=== PATIENT | female | born 1950 | race Caucasian/White ===

== ENCOUNTER 2019-04-18 00:56 | Day surgery (SDC) | payer MEDICARE, SELFPAY ==
[2019-04-15 11:04] VITALS: BMI 41.1
--- NOTE | ~2019-04-18 | XR_ITS ---
EXAMINATION: XR chest port-a-cath/central EXAM DATE: 04/18/2019 13:15 INDICATION: Owen catheter insertion. TECHNIQUE: Portable AP frontal chest x-ray was obtained. There is no prior study for comparison. FINDINGS: There is patchy left perihilar atelectasis or pneumonia. There is a right-sided portacathet er in position. No postprocedural pneumothorax. Cardiomegaly and pulmonary vascular congestion. There are mild bony degenerative changes. IMPRESSION: 1. No postprocedure pneumothorax. 2. Patchy left perihilar atelectasis and/or pneumonia. Clinical correlation. Reviewed, dictated and finalized at location B. ISTICS MANAGER
--- NOTE | ~2019-04-18 | XR_ITS ---
EXAMINATION: XR fl guide central line place DATE: 04/18/2019 12:52 INDICATION: Port placement. TECHNIQUE: A single intraoperative fluoroscopic view of the chest was obtained. I was not present. Fl uoroscopy time was 18 seconds. COMPARISON: None. FINDINGS: There is a right internal jugular central venous catheter with tip not included. No visible pneumothorax. IMPRESSION: 1. Catheter placement. Reviewed, dictated and finalized at location A. TENANCE WORKER SWIMMING POOL IMPRESSION: 1. Catheter placement.
[2019-04-18 09:52] VITALS: BP 182/61; PULSE 68; RESP 20; TEMP 36.7; O2SAT 100
[2019-04-18] MEDS: LACTATED RINGERS 1,000 ML 30 ML IV CONT (10:15)
[2019-04-18] MEDS: IBUPROFEN IV 800 MG/200 ML 800 MG/200 ML BAG 400 MG IVPB (10:20)
[2019-04-18 10:34] LABS: Glucose Point of Care 189 (65-105)
[2019-04-18 10:36] LABS: INR 1.1; Prothrombin Time 13.7 Seconds (11.1-14.7)
[2019-04-18 10:37] LABS: Partial Thromboplastin Time 32.8 SECONDS (22.3-36.8)
--- NOTE | 2019-04-18 10:42 | SUR.PREOP ---
1005-STATES NO CHANGE SINCE INTERVIEW.
--- NOTE | 2019-04-18 11:33 | WPDANESEPPF ---
Anes - Initial Pre Proc Eval Procedure: Operation Date: 04/18/19 12:00 Proposed Procedures p Insertion Owen Cath - Bhavik Maria DO Date/Time: 04/18/19 11:33 Surgeon: Bhavik Maria DO Pre Op Diagnosis: Rectal Cancer Patient Data Age: 68 Gender: F Height: 5 ft Weight: 92.6 kg Last Vital Signs Temp 36.7 C 04/18/19 09:52 Pulse 68 04/18/19 09:52 Resp 20 04/18/19 09:52 BP 182/61 H 04/18/19 09:52 Pulse Ox 100 04/18/19 09:52 Allergies Allergy/AdvReac Type Severity Reaction Status Date / Time hydrochlorothiazide Allergy Intermediate LIP Verified 04/18/19 10:07 SWELLING nickel AdvReac Mild Rash Verified 04/18/19 10:07 Home Medications Medication Instructions Recorded Confirmed Type alendronate 35 mg PO WEEKLY 04/15/19 04/18/19 History allopurinol 200 mg PO DAILY 04/15/19 04/18/19 History alogliptin-metformin 0.5 tablet PO DAILY 04/15/19 04/18/19 History amlodipine 2.5 mg PO HS 04/15/19 04/18/19 History apixaban [Eliquis] 5 mg PO BID 04/15/19 04/15/19 History carvedilol 12.5 mg PO BID 04/15/19 04/18/19 History cholecalciferol (vitamin D3) 1,000 unit PO DAILY 04/15/19 04/18/19 History [Vitamin D3] ramipril 10 mg PO BID 04/15/19 04/18/19 History simvastatin 40 mg PO HS 04/15/19 04/18/19 History vit C-vit I-hgxxls-gdbu-lutein 1 cap PO DAILY 04/15/19 04/18/19 History [PreserVision Lutein] Laboratory Tests 04/18/19 04/18/19 10:06 10:22 PT 13.7 Seconds Seconds (11.1-14.7) INR 1.1 APTT 32.8 SECONDS SECONDS (22.3-36.8) POC Capillary Glucose 189 mg/dl H mg/dl (65-105) Patient hx anesthesia problems: none Family hx anesthesia problems: none PMFSH Past Medical History Medical History (Updated 04/18/19 @ 11:34 by Ivan To MD) Diabetes HTN (hypertension) Hyperlipidemia Morbid obesity Anes - Eval Final PreProcedure Day of Procedure 04/18/19 11:33 Patient weight: obese Heart: regular rate and rhythm Lungs: clear to auscultation Airway: Mallampati scale class II Neurological: alert and oriented Last oral intake: >/= 8 hours ASA classification: III Emergent: no Anesthetic plan: delay Anesthesia type and monitoring: general GIVS and standard monitoring Informed Consent: The patient's anesthetic plan and its attendant risks and benefits were discussed with the patient/family/POA. Questions were solicited and answers provided to the satisfaction of the patient/family/POA.
--- NOTE | 2019-04-18 11:46 | PM.IMHP ---
H&P: HPI History of Present Illness Chief complaint: Rectal Cancer Narrative: Karen Paulino is a 68 year old female with a hx of rectal cancer. She previously underwent low anterior resection, and did not require chemo at that time. 2 years later, she is now showing signs of metastases. She has seen oncology and they are recommending chemo. Review of Systems Review of Systems: All systems reviewed & are unremarkable except as noted in HPI and below Eyes: Eyes: Denies change in vision ENT: Denies hearing loss, Denies neck pain and Denies sore throat Cardiovascular: Cardiovascular: Denies chest pain and Denies dyspnea Respiratory: Respiratory: Denies cough, Denies dyspnea and Denies wheezing Genitourinary: Genitourinary: Denies hematuria and Denies dysuria Musculoskeletal: Musculoskeletal: Denies arthralgias, Denies joint swelling and Denies neck pain Allergic/Immunologic: Allergic/Immunologic: Denies wheezing PMFSH Past Medical History Medical History Diabetes HTN (hypertension) Hyperlipidemia Morbid obesity Meds Home Medications and Allergies Home Medications Medication Instructions Recorded Confirmed Type alendronate 35 mg PO WEEKLY 04/15/19 04/18/19 History allopurinol 200 mg PO DAILY 04/15/19 04/18/19 History alogliptin-metformin 0.5 tablet PO DAILY 04/15/19 04/18/19 History amlodipine 2.5 mg PO HS 04/15/19 04/18/19 History apixaban [Eliquis] 5 mg PO BID 04/15/19 04/15/19 History carvedilol 12.5 mg PO BID 04/15/19 04/18/19 History cholecalciferol (vitamin D3) 1,000 unit PO DAILY 04/15/19 04/18/19 History [Vitamin D3] ramipril 10 mg PO BID 04/15/19 04/18/19 History simvastatin 40 mg PO HS 04/15/19 04/18/19 History vit C-vit B-wlcydv-kepv-lutein 1 cap PO DAILY 04/15/19 04/18/19 History [PreserVision Lutein] Allergies Allergy/AdvReac Type Severity Reaction Status Date / Time hydrochlorothiazide Allergy Intermediate LIP Verified 04/18/19 10:07 SWELLING nickel AdvReac Mild Rash Verified 02/10/20 10:07 Vital Signs Vital Signs - 24 hr 04/18/19 09:52 Temperature 36.7 C Pulse Rate 68 Respiratory Rate 20 Blood Pressure 182/61 H Pulse Oximetry 100 Exam Const: General: alert; No acute distress Orientation/consciousness: patient oriented x3 Limitations: no limitations HENMT: Head: normocephalic and atraumatic Ears: hearing grossly normal bilaterally General nose exam: Normal external nose present and Normal nares present Mouth: Yes Normal oral and palatal mucosa present and Yes moist mucous membranes Eyes: General: appearance normal, both eyes and all related structures Conjunctivae: conjunctivae normal Sclera: sclerae normal Pupils: Equal, round and reactive pupils present EOM: EOMs intact bilaterally Neck: Neck: normal visual inspection, full ROM, no lymphadenopathy, supple and no JVD Lymphatic: no lymphadenopathy noted Chest: Chest palpation & inspection: normal inspection of the chest Resp: Effort & Inspection: normal respiratory effort and able to speak in complete sentences Auscultation: clear to auscultation bilaterally Percussion: percussion normal Cardio: Jugular venous distension: no JVD Rate: regular rate Rhythm: regular rhythm Heart sounds: S1 normal heart sound present and S2 normal heart sound present Peripheral pulses: Peripheral pulses 2+ throughout GI: Inspection: normal to inspection GI Palp: No abdominal tenderness, Yes Soft to palpation, No Guarding due to palpation present (GI), No Hernia present and No Rebound tenderness present Percussion: Yes normal to percussion Auscultation: normal bowel sounds : General: Yes no CVA tenderness Back/Spine/Pelvis: Back: no CVA tenderness Skin: General skin exam: normal color and dry skin Neuro: General: patient oriented x3, gait normal, moves all extremities, no focal motor deficits and CN's II-XI intact bilaterally Cranial nerves: Yes Equal, r
[2019-04-18] MEDS: ceFAZolin 2 GM/D5W 50 ML 2 GM/50 ML BAG IVPB (11:56)
[2019-04-18] MEDS: LIDO 1%/EPINEPHRINE 1:100,000 20 ML VIAL INFILTRATE (12:24)
[2019-04-18] MEDS: HEPARIN SODIUM, PORCINE 10,000 UNITS/10 ML VIAL 2000 UNITS IV PUSH (12:25)
[2019-04-18] MEDS: HEPARIN SODIUM 5,000 UNITS/ML VIAL 5000 UNITS IRRIGATION (12:27)
--- NOTE | 2019-04-18 12:52 | PM.PROC ---
Procedure Note - Detailed Date of procedure: 04/18/19 Pre-op diagnosis: Rectal Cancer Post-op diagnosis: same Procedure performed: Right internal jugular Port-A-Cath placement using ultrasound and fluoroscopic guidance Description of procedure: Procedure as well as risks, benefits, and alternatives were discussed with patient. Written consent was obtained and placed in chart prior to procedure. Patient was brought back to surgical suite. Was placed supine on operating table. Time-out was done confirm patient procedure. IV sedation was then administered by the Anesthesia Department. The chest and neck area was prepped and draped in sterile fashion using chlorhexidine prep. Patient was placed in Trendelenburg position. SonoSite ultrasound was used to identify the right internal jugular vein. It was visualized as a compressible vessel just lateral to the carotid artery. 1% lidocaine with epinephrine was infiltrated directly over the vessel under ultrasound guidance. An 18 gauge introducer needle was then advanced under ultrasound guidance directly into the right internal jugular vein. Dark nonpulsatile blood was aspirated. A 0.035 in guidewire was then advanced through the needle under fluoroscopic guidance. The guidewire was visualized advancing all the way down into the superior vena cava. 1% lidocaine with epinephrine was then infiltrated on the right anterior chest and along the tract up to the guidewire insertion site. A 3 cm incision was made with a 15 blade scalpel, and electrocautery was then used for dissection down through the subcutaneous tissue to the pectoral fascia. A pocket was created just inferior to the incision using blunt dissection. A small quynh incision was then also made at the insertion site at the neck. The tunneler was then advanced from the chest incision up to the neck incision and the catheter tubing was brought up through this tract. The dilator and sheath were then advanced over the guidewire under fluoroscopic visualization. The dilator and guidewire were then removed leaving the sheath in place. The catheter tubing was then advanced through the sheath under fluoroscopic guidance. The sheath was unsnapped and carefully peeled away. The catheter tubing was released underneath the neck incision. Fluoroscopy was used to confirm proper placement of the catheter tubing and no kinks along its path. The catheter was then cut to proper length and secured to the port. The port was then accessed with a Fernandez needle and aspirated and flushed with heparinized saline. The port function with ease. The port was then hep-locked with Hep-Lock solution. The port was then placed within the pocket that was created, and was secured to the fascia using 3 0 Prolene simple interrupted sutures. The patient was flattened out in bed. Ck's fascia was reapproximated using 3 0 Vicryl simple interrupted sutures. The skin of the incisions was then approximated using 4-0 Monocryl subcuticular suture. Exofin glue was then applied on top. The patient was then awakened from anesthesia and transferred to recovery. Implants: Smart Port CT port Anesthesia: MAC and local (1% lidocaine with epinephrine) Surgeon: Bhavik Maria DO Estimated blood loss (mL): 20 Complications: No immediate complications Condition: stable Disposition: same day Findings: This is a 68-year-old woman who presented with a prior history of rectal cancer and underwent surgical resection 2 years ago. She did not require chemotherapy or radiation at that time, but now has evidence of metastases. She has seen Oncology and now chemotherapy is recommended. She is in need of port placement to initiate chemo. Smart Port CT Port-A-Cath was placed using ultrasound and fluoroscopic guidance. The right internal jugular vein was accessed using [email or web address] ultrasound guidance. An 18 gauge introducer needle was advanced under ultrasound and dark nonpulsatile blood was aspirated. Fluo
[2019-04-18 13:03] VITALS: BP 121/55; PULSE 81; RESP 14; O2SAT 95
--- NOTE | 2019-04-18 13:11 | SUR.PHASEII ---
1310; PORTABLE CXR DONE AT BEDSIDE.
[2019-04-18 13:30] VITALS: BP 135/58; PULSE 69; RESP 16
[2019-04-18 14:03] VITALS: BP 139/55; PULSE 80; RESP 16
--- NOTE | 2019-04-18 14:14 | SUR.PHASEII ---
1350; PT TAKEN TO BATHROOM PER W/C. GAIT SOMEWHAT UNSTEADY. PT STATES SHE USES A CANE AND SOMETIMES A WALKER AT HOME. VOIDED.
== END 2019-04-18 14:15 | disposition home or self-care (01) ==
PROVIDERS: PCP Internal Medicine; Visit Provider Surgery
PROC: (CPT 36561; principal; 2019-04-18 12:00)
DX: C20 Malignant neoplasm of rectum (principal); I10 Essential (primary) hypertension; E78.5 Hyperlipidemia, unspecified; E66.01 Morbid (severe) obesity due to excess calories; Z68.39 Body mass index [BMI] 39.0-39.9, adult; Z79.01 Long term (current) use of anticoagulants
CPT/HCPCS: 36561; 36415; 77001; 85610; 85730; C1788; J0690; J1644; J1741; J2704; J3010; J7030; J7120

== ENCOUNTER 2019-05-16 09:38 | Outpatient (CLI) | payer MEDICARE, SELFPAY ==
[2019-05-16 12:18] LABS: Cholesterol 129 mg/dL (0-200); HDL Direct 53 mg/dL; Triglycerides 223 mg/dL (<150); Uric Acid 4.9 mg/dL (2.5-7.5)
[2019-05-16 12:29] LABS: LDL Cholesterol Direct 69 mg/dL
[2019-05-16 12:36] LABS: Vitamin D 25 Hydroxy 24.3 ng/mL
[2019-05-16 13:18] LABS: Hemoglobin A1C 7.3 % (<5.7)
== END 2019-05-16 09:39 | disposition home or self-care (01) ==
LOC: ANHLAB 09:41
PROVIDERS: PCP Internal Medicine; Visit Provider Internal Medicine
DX: E78.49 Other hyperlipidemia (principal); E11.42 Type 2 diabetes mellitus with diabetic polyneuropathy; I10 Essential (primary) hypertension; E55.9 Vitamin D deficiency, unspecified; E79.0 Hyperuricemia without signs of inflammatory arthritis and tophaceous disease
CPT/HCPCS: 36415; 80061; 82306; 83036; 84443; 84550

== ENCOUNTER 2019-07-27 07:08 | Outpatient (CLI) | payer MEDICARE, SELFPAY ==
--- NOTE | ~2019-07-27 | CT_ITS ---
EXAMINATION: CT abdomen pelvis w con DATE: 07/27/2019 07:38 INDICATION: Rectal adenocarcinoma. TECHNIQUE: Computed tomography (CT) of the abdomen and pelvis was performed with 100 mL Omnipaque 350 intravenous contrast. Automated exposure control and iterative reconstruction technique were employe d. The dose-length product was 1243.45 mGy-cm. COMPARISON: None. FINDINGS: The visualized portions of the lung bases demonstrate mild atelectasis. No pleural effusion . Cardiomegaly is noted. There are coronary artery calcifications. No pericardial effusion. There is a catheter tip in right atrium. 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 The liver pare nchyma, spleen, pancreas, and adrenal glands are normal. There is cortical thinning of the kidneys. T here are cysts in the kidneys measuring up to 2.9 cm on the right. There is a calcification in the ut erus, consistent with a fibroid. There is diverticulosis of the colon without evidence of diverticuli tis. There are no dilated loops of bowel. There are no pathologically enlarged lymph nodes. There is no free intraperitoneal fluid. There is a left hip arthroplasty. There is a chronic left L5 pars defe ct. There is 9 mm anterolisthesis of L5 on S1. There is lumbar dextroscoliosis. There is severe thora cic and lumbar spondylosis. IMPRESSION: 1. No evidence of metastatic disease. Reviewed, dictated and finalized at location E.
== END 2019-07-27 07:09 | disposition home or self-care (01) ==
PROVIDERS: PCP Internal Medicine; Visit Provider Internal Medicine Hematology & Oncology
DX: C20 Malignant neoplasm of rectum (principal)
CPT/HCPCS: 36415; 74177; 80048; 80053; 81002; 85025; 96367; 96368; 96375; 96411; 96413; 96415; 96416; 96417; J0640; J1100; J1200; J2469; J7050; J7060; J9035; J9190; J9263; Q9967

== ENCOUNTER 2019-09-19 10:08 | Outpatient (CLI) | payer MEDICARE, SELFPAY ==
[2019-09-19 12:25] LABS: Cholesterol 141 mg/dL (0-200); HDL Direct 59 mg/dL; Triglycerides 202 mg/dL (<150)
[2019-09-19 12:29] LABS: Hemoglobin A1C 8.1 % (<5.7)
[2019-09-19 12:36] LABS: LDL Cholesterol Direct 60 mg/dL
[2019-09-19 12:38] LABS: Vitamin D 25 Hydroxy 14.9 ng/mL
== END 2019-09-19 10:09 | disposition home or self-care (01) ==
PROVIDERS: PCP Internal Medicine; Visit Provider Internal Medicine Hematology & Oncology
DX: E66.01 Morbid (severe) obesity due to excess calories (principal); E11.42 Type 2 diabetes mellitus with diabetic polyneuropathy; Z79.4 Long term (current) use of insulin; E78.49 Other hyperlipidemia; G62.89 Other specified polyneuropathies
CPT/HCPCS: 36415; 80061; 82306; 82607; 83036; 84443

== ENCOUNTER 2019-11-07 08:21 | Outpatient (CLI) | payer MEDICARE, SELFPAY ==
--- NOTE | ~2019-11-07 | CT_ITS ---
EXAMINATION: CT abdomen pelvis w con INDICATION: Rectal adenocarcinoma TECHNIQUE: Computed tomographic images of the abdomen and pelvis were obtained after the administrati on of 100 cc of Omnipaque 350 intravenous contrast. The dose-length product (DLP) was 1245.70 mGy-cm. Automated exposure control and iterative reconstruction technique were employed. COMPARISON: 07/27/2019 FINDINGS: Minimal dependent atelectasis is present in the lung bases. The heart size is mildly enlarg ed. The liver, spleen, pancreas, gallbladder, and adrenal glands are normal. Cysts of the kidneys kyle sure up to 3.4 cm on the right. 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 Ther e is calcified atherosclerosis of the aorta and many of the other arteries. No pathologically enlarge d abdominal or pelvic lymph nodes are identified. There is no free intraperitoneal gas or evidence of bowel obstruction. A calcified uterine fibroid is noted. There are changes of left hip arthroplasty. A healed fracture of the left inferior pubic ramus is noted. There are bilateral L5 pars defects wit h grade 1 anterolisthesis of L5 on S1. Severe lumbar spondylosis is noted. IMPRESSION: 1. No evidence of metastatic disease. Reviewed, dictated and finalized at location A.
[2019-11-07 08:51] LABS: Basophils Percent Auto 0.5 % (0.2-1.2); Eosinophils Absolute Auto 0.2 K/mm3 (0-0.3); Eosinophils Percent Auto 2.7 % (0-4.4); Hematocrit 36.5 % (37.0-47.0); Immature Granulocyte Absolute 0.02 K/mm3 (0.00-0.031); Immature Granulocyte Percent A 0.3 % (0-0.5); Lymphocytes Absolute Auto 1.22 K/mm3 (0.9-3.2); Lymphocytes Percent Auto 20.3 % (18.3-44.2); Mean Corpuscular HGB Conc 32.9 g/dl (32-36); Mean Corpuscular Hemoglobin 32.5 pg (26-34); Mean Corpuscular Volume 98.9 fl (80-100); Mean Platelet Volume 8.9 fl (7.4-10.4); Monocytes Absolute Auto 0.4 K/mm3 (0.1-0.6); Monocytes Percent Auto 6.7 % (2.6-8.5); Neutrophils Absolute Auto 4.2 K/mm3 (1.3-6.7); Neutrophils Percent Auto 69.5 % (45.5-73.1); Platelet Count Result 119 k/mm3 (150-375); Red Blood Count 3.69 M/mm3 (4.2-5.4); Red Cell Distribution Width 16.1 % (11.5-14.5)
[2019-11-07 09:03] LABS: Alanine Aminotransferase 19 U/L (4-35); Albumin Level 3.7 g/dL (3.5-5.1); Alkaline Phosphatase 90 U/L (38-126); Anion Gap 7 mmol/L (8-16); Aspartate Amino Transferase 24 U/L (14-36); Bilirubin,Total 0.7 mg/dL (0.2-1.3); Blood Urea Nitrogen 14 mg/dL (7-17); Calcium 9.4 mg/dL (8.4-10.2); Carbon Dioxide 25 mmol/L (22-30); Chloride 107 mmol/L (98-107); Estimated Glomerular Filt Rate > 60; Glucose 171 mg/dL (65-105); Potassium 3.7 mmol/L (3.4-5.0); Sodium 139 mmol/L (137-145)
[2019-11-07 09:34] LABS: Carcinoembryonic Antigen 8.1 ng/mL (0.0-3.0)
== END 2019-11-07 08:22 | disposition home or self-care (01) ==
PROVIDERS: PCP Internal Medicine; Visit Provider Internal Medicine Hematology & Oncology
DX: C20 Malignant neoplasm of rectum (principal)
CPT/HCPCS: 36415; 74177; 80053; 82378; 85025; Q9967

== ENCOUNTER 2019-11-18 13:58 | Outpatient (CLI) | payer MEDICARE, SELFPAY ==
--- NOTE | ~2019-11-18 | XR_ITS ---
XR wrist RT min 3V DATE: 11/18/2019 14:27 INDICATION: Pain, swelling, erythema of right wrist TECHNIQUE: 4 views COMPARISON: None FINDINGS: Diffuse osteopenia. There is chondrocalcinosis of the triangular cartilage and wrist joint. There is severe osteoarthritic change at the triscaphe joint, joint space narrowing and prominent hyp ertrophic spurring. No fracture, dislocation, periosteal reaction or bone destruction is detected. 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
== END 2019-11-18 13:59 | disposition home or self-care (01) ==
PROVIDERS: PCP Internal Medicine
DX: M85.831 Other specified disorders of bone density and structure, right forearm (principal); M19.031 Primary osteoarthritis, right wrist
CPT/HCPCS: 73110

== ENCOUNTER 2020-01-17 14:22 | Outpatient (CLI) | payer MEDICARE, SELFPAY ==
--- NOTE | ~2020-01-17 | CT_ITS ---
EXAMINATION: CT chest abdomen pelvis w con DATE: 01/17/2020 15:16 INDICATION: Rectal adenocarcinoma restaging TECHNIQUE: Computed tomography (CT) of the chest, abdomen, and pelvis was performed with 100 cc Omnip aque 350 intravenous contrast. Automated exposure control and iterative reconstruction technique were employed. Exam dose: 1193.27 mGy-cm total exam DLP. COMPARISON: 11/07/2019 CT abdomen pelvis FINDINGS: CHEST CT: There is mild dependent atelectasis and/or scarring in the right and to a lesser extent left lower an d bilateral upper lobes. No pulmonary mass lesion is evident. Cardiomegaly. No pericardial effusion. There is coronary artery atherosclerotic calcification. No tho racic aortic dissection. The ascending aorta measures up to 4 cm diameter. No hilar or mediastinal mass lesion or lymphadenopathy. ABDOMEN/PELVIS CT: Diffuse hepatic steatosis. No hepatic, splenic, pancreatic, adrenal space-occupying mass lesion. 3 cm lower pole right renal cyst. Approximately 9.8 mm upper pole left renal cyst. Approximately 4.5 mm benign-appearing fatty lesion of the anterior aspect of the lower pole of the left kidney. There i s bilateral renal scarring. Nonobstructing 2 small lower pole right renal calculi are suggested; this would be more definitively determined by a noncontrast examination. No ureteral calculus or hydroureteronephrosis is evident. There is extensive streak artifact and a le ft hip joint prosthesis, which somewhat limits evaluation of the pelvic area. There is atherosclerotic calcification but normal caliber of the abdominal aorta. No intraperitoneal or retroperitoneal or pelvic mass lesion or adenopathy or ascites is detected. Retroverted uterus with some fibroid calcification. The urinary bladder is unremarkable. There is mild colonic diverticulosis; no CT evidence of diverticulitis. No bowel obstruction, bowel w all thickening, pneumatosis or intraperitoneal free air. There is a small amount of free fluid in the cul-de-sac. Very small fat-containing umbilical hernia. Prominent degenerative changes of the lower cervical spine. Degenerative change of the thoracic spine . Bilateral L5 pars interarticularis defects with grade 2 anterolisthesis at L5-S1. There is prominent degenerative disc disease throughout the lumbar and lumbosacral spine, with associ ated mild retrolisthesis at L1-2, L2-3 and L3-4. No suspicious osteolytic or osteoblastic lesions are noted. IMPRESSION: No evidence of recurrent rectal adenocarcinoma or metastatic disease Reviewed, dictated and finalized at Location A. Reviewed, dictated and finalized at location A. GAUGER IMPRESSION: No evidence of recurrent rectal adenocarcinoma or metastatic disea se
== END 2020-01-17 14:23 | disposition home or self-care (01) ==
PROVIDERS: PCP Internal Medicine; Visit Provider Internal Medicine Hematology & Oncology
DX: C20 Malignant neoplasm of rectum (principal)
CPT/HCPCS: 71260; 74177; Q9967

== ENCOUNTER 2020-04-27 10:35 | Outpatient (CLI) | payer MEDICARE, SELFPAY ==
[2020-04-27 10:54] LABS: Basophils Percent Auto 0.3 % (0.2-1.2); Eosinophils Absolute Auto 0.2 K/mm3 (0-0.3); Eosinophils Percent Auto 2.3 % (0-4.4); Hematocrit 39.3 % (37.0-47.0); Hemoglobin 12.2 g/dL (12.0-15.0); Immature Granulocyte Absolute 0.02 K/mm3 (0.00-0.031); Immature Granulocyte Percent A 0.3 % (0-0.5); Lymphocytes Percent Auto 12.4 % (18.3-44.2); Mean Corpuscular Volume 93.6 fl (80-100); Mean Platelet Volume 9.3 fl (7.4-10.4); Monocytes Absolute Auto 0.3 K/mm3 (0.1-0.6); Monocytes Percent Auto 4.1 % (2.6-8.5); Neutrophils Absolute Auto 5.9 K/mm3 (1.3-6.7); Neutrophils Percent Auto 80.6 % (45.5-73.1); Platelet Count Result 171 k/mm3 (150-375); Red Cell Distribution Width 15.6 % (11.5-14.5); White Blood Count 7.3 K/mm3 (4.5-10.0)
[2020-04-27 13:37] LABS: Alanine Aminotransferase 17 U/L (4-35); Alkaline Phosphatase 80 U/L (38-126); Anion Gap 9 mmol/L (8-16); Aspartate Amino Transferase 24 U/L (14-36); Bilirubin,Total 0.8 mg/dL (0.2-1.3); Blood Urea Nitrogen 15 mg/dL (7-17); Calcium 9.7 mg/dL (8.4-10.2); Carbon Dioxide 28 mmol/L (22-30); Chloride 105 mmol/L (98-107); Estimated Glomerular Filt Rate > 60; Glucose 153 mg/dL (65-105); Potassium 3.8 mmol/L (3.4-5.0); Sodium 142 mmol/L (137-145)
[2020-04-27 14:07] LABS: Carcinoembryonic Antigen 82.6 ng/mL (0.0-3.0)
== END 2020-04-27 10:36 | disposition home or self-care (01) ==
LOC: ANHLAB 10:37
PROVIDERS: PCP Internal Medicine; Visit Provider Internal Medicine Hematology & Oncology
DX: C20 Malignant neoplasm of rectum (principal)
CPT/HCPCS: 36415; 80053; 82378; 85025

== ENCOUNTER 2020-05-08 11:41 | Outpatient (CLI) | payer MEDICARE, SELFPAY ==
--- NOTE | ~2020-05-08 | PE_ITS ---
EXAMINATION: PET skull to mid thigh DATE: 05/08/2020 14:05 INDICATION: Rectal adenocarcinoma TECHNIQUE: Blood glucose level was 122 mg/dL. 11.719 mCi of 18-fluorodeoxyglucose (18-FDG) was admini stered i.v. Low dose computed tomography (CT) images were acquired from the base of the brain to the proximal thighs for attenuation correction and anatomic localization. Positron emission tomography (P ET) images were acquired in the same distribution beginning 60 minutes after injection. Images includ ing fused PET/CT images were reconstructed in axial, coronal, and sagittal planes. Automated exposure control technique was employed. The dose-length product was 722.81mGy-cm. COMPARISON: CT chest, abdomen and pelvis dated 01/17/2020 FINDINGS: Head/neck: There is symmetric increased activity in the oral cavity, palatine tonsils, laryngeal muscles and ocu lar muscles without CT correlate, likely physiologic. Postoperative change of prior right thyroidecto my. There is mild increased FDG uptake is fissure with small nodular soft tissue density with maximal SUV of 3.4 and measuring up to 8 mm in diameter, possibly a lymph node, in the region of the deep le ft thyroid fossa. 1.3 cm peripherally calcified nodule in the deep right thyroid. No pathologically e nlarged cervical lymphadenopathy. Chest: Right internal jugular central venous port catheter with distal tip at the high right atrium. Mild at electasis at the posterior sulcus of the right lower lobe without increased FDG uptake. There is scat tered mosaic attenuation with chronic subsegmental region of increased lucency in the anteromedial ri ght middle lobe likely related to air trapping as sequela small airway disease. No pneumonia or other suspicious pulmonary nodules, pulmonary edema or pleural effusion. Cardiomegaly. Atherosclerotic cor onary artery calcifications. Aortic valve and mitral annular calcification. No pericardial effusion. Fusiform ascending thoracic aortic aneurysm measuring up to 4.0 cm. There is enlargement of the centr al pulmonary arteries consistent with pulmonary arterial hypertension. No pathologically enlarged tho racic lymphadenopathy. Asymmetric densities in surrounding stranding in the left breast which is new since the prior CT. There is also asymmetric minimal diffuse increased FDG activity throughout the le ft breast and along the skin surface. These findings are likely related to reported recent left breas t biopsy. No other abnormal FDG avid lesions in the thorax. Abdomen/pelvis/proximal thighs: Physiologic renal accumulation and excretion of FDG activity in the kidneys, bladder and along portio ns of ureters. 3 cm low-density cyst at the lower pole of the left kidney. Normal degree and heteroge nous pattern of increased uptake throughout the liver without radiologic correlate or dominant FDG av id lesion. The gallbladder, pancreas, spleen and bilateral adrenal glands are normal. Mild to moderat e uptake scattered throughout the bowels without radiologic correlate, also likely physiologic. Calci fication at the lower uterine segment likely related to a degenerated uterine fibroid. There is mild increased FDG uptake within a left para-aortic lymph node with maximum SUV of 3.8. The lymph node kyle sures approximately 4-5 mm maximal short axis diameter on the prior study now approximately 7 mm alth ough accuracy of measurement on the current study is more limited due to the poorly defined margins o f the lymph node resulting from quantum mottle. There is a couple additional mildly FDG avid retroper itoneal lymph nodes including an inferior aortocaval lymph node with maximal SUV of 3.1 and a right c ommon iliac chain lymph node with maximal SUV of 2.9. The dimensions of both lymph nodes are again di fficult to accurately determine on the current study but appear subjectively increased in size since the prior study. No other abnormal foci of increased
[2020-05-08 12:23] LABS: Glucose Point of Care 122 (65-105)
== END 2020-05-08 11:42 | disposition home or self-care (01) ==
LOC: ANHIMG 11:42
PROVIDERS: PCP Internal Medicine; Visit Provider Internal Medicine Hematology & Oncology
DX: C20 Malignant neoplasm of rectum (principal); R59.0 Localized enlarged lymph nodes; E89.0 Postprocedural hypothyroidism; I51.7 Cardiomegaly; I71.2 Thoracic aortic aneurysm, without rupture; E11.9 Type 2 diabetes mellitus without complications
CPT/HCPCS: 78815; 82948; 96523; A9552

== ENCOUNTER 2020-07-16 12:01 | Outpatient (CLI) | payer MEDICARE, SELFPAY ==
[2020-07-16 13:08] LABS: Uric Acid 5.3 mg/dL (2.5-7.5)
[2020-07-16 13:12] LABS: Hemoglobin A1C 6.2 % (<5.7)
[2020-07-16 13:43] LABS: Parathyroid Intact 208.4 pg/mL (7.5-53.5)
[2020-07-16 14:14] LABS: Vitamin D 25 Hydroxy 24.7 ng/mL
[2020-07-16 14:40] LABS: Creatinine Urine 93.5 mg/dL
[2020-07-16 14:44] LABS: MALB Creatinine Ratio 62.1 mg/g (0-30); Microalbumin Urine Random 58.1 mg/L (0-16.7)
== END 2020-07-16 12:02 | disposition home or self-care (01) ==
LOC: ANHLAB 12:03
PROVIDERS: PCP Internal Medicine; Visit Provider Internal Medicine
DX: C20 Malignant neoplasm of rectum (principal); E55.9 Vitamin D deficiency, unspecified; M10.00 Idiopathic gout, unspecified site; E78.49 Other hyperlipidemia; E11.42 Type 2 diabetes mellitus with diabetic polyneuropathy; Z79.4 Long term (current) use of insulin; I10 Essential (primary) hypertension
CPT/HCPCS: 36415; 82043; 82306; 82607; 83036; 83970; 84443; 84550

== ENCOUNTER 2020-08-28 09:14 | Outpatient (CLI) | payer MEDICARE, SELFPAY ==
--- NOTE | ~2020-08-28 | CT_ITS ---
EXAMINATION: CT chest abdomen pelvis w con DATE: 08/28/2020 10:07 INDICATION: Metastatic rectal cancer TECHNIQUE: Transaxial computed tomographic images of the chest, abdomen, and pelvis were obtained aft er the administration of 100 cc of Omnipaque 350 intravenous contrast. The dose-length product (DLP) was 864.06 mGy-cm. Automated exposure control and iterative reconstruction technique were employed. COMPARISON: 05/08/2020, 01/17/2020 FINDINGS: CHEST CT: No abnormal FDG uptake is identified. There is mild dependent atelectasis. No focal airspace opacitie s are identified. A 10 mm nodular opacity of the right posterior costophrenic angle likely represents resolving atelectasis given the appearance on the recent comparison PET/CT and the absence of FDG up take in this region. Cardiomegaly is noted. There are no pathologically enlarged thoracic lymph nodes . There is an unchanged 10 mm calcified nodule of the right thyroid lobe. Changes of left thyroidecto my are noted. A right internal jugular Port-A-Cath ends with its tip in the distal superior vena cava . Calcified coronary artery atherosclerosis is noted. ABDOMEN/PELVIS CT: Physiologic FDG activity is present in the bowel and urinary tract. No abnormal FDG uptake is identif ied. The liver, spleen, pancreas, gallbladder, and adrenal glands are normal. Cysts of the kidneys measure up to 3.4 cm on the right. Nonobstructing stones in the right kidney lower pole measure up to 3 mm. No pathologically enlarged abdominal or pelvic lymph nodes are identified. There is calcified atherosclerosis of the aorta and many of the other arteries. There is no free intraperitoneal gas or evidence of bowel obstruction. Changes of left hip arthroplasty are noted and cause streak artifact i n the pelvis. Calcifications in the uterus likely reflect calcified fibroids. There is severe lumbar spondylosis. IMPRESSION: 1. No evidence of metastatic disease. Reviewed, dictated and finalized at location A.
[2020-08-28 09:55] LABS: Estimated Glomerular Filt Rate > 60
== END 2020-08-28 09:15 | disposition home or self-care (01) ==
PROVIDERS: PCP Internal Medicine; Visit Provider Internal Medicine Hematology & Oncology
DX: C77.8 Secondary and unspecified malignant neoplasm of lymph nodes of multiple regions (principal)
CPT/HCPCS: 71260; 74177; Q9967

== ENCOUNTER 2020-10-15 08:34 | Outpatient (CLI) | payer MEDICARE, SELFPAY ==
[2020-10-15 08:44] LABS: Basophils Percent Auto 0.3 % (0.2-1.2); Eosinophils Absolute Auto 0.1 K/mm3 (0-0.3); Eosinophils Percent Auto 2.2 % (0-4.4); Hematocrit 31.3 % (37.0-47.0); Hemoglobin 9.9 g/dL (12.0-15.0); Immature Granulocyte Absolute 0.01 K/mm3 (0.00-0.031); Immature Granulocyte Percent A 0.3 % (0-0.5); Lymphocytes Absolute Auto 0.75 K/mm3 (0.9-3.2); Lymphocytes Percent Auto 23.2 % (18.3-44.2); Mean Corpuscular HGB Conc 31.6 g/dl (32-36); Mean Corpuscular Volume 98.1 fl (80-100); Monocytes Absolute Auto 0.2 K/mm3 (0.1-0.6); Monocytes Percent Auto 6.5 % (2.6-8.5); Neutrophils Absolute Auto 2.2 K/mm3 (1.3-6.7); Neutrophils Percent Auto 67.5 % (45.5-73.1); Platelet Count Result 133 k/mm3 (150-375); Red Blood Count 3.19 M/mm3 (4.2-5.4); Red Cell Distribution Width 17.2 % (11.5-14.5); White Blood Count 3.2 K/mm3 (4.5-10.0)
[2020-10-15 08:50] LABS: Blood Urea Nitrogen 14 mg/dL (8-26); Carbon Dioxide 26 mmol/L (22-30); Chloride 105 mmol/L (98-109); Estimated CRCL calculation 51 ml/min; Estimated Glomerular Filt Rate > 60; Glucose 157 mg/dL (70-105); Potassium 3.6 mmol/L (3.5-4.9); Sodium 144 mmol/L (138-146)
[2020-10-15 10:11] LABS: Protein Urine Negative (Negative)
[2020-10-15 13:48] LABS: Hemoglobin A1C 6.1 % (<5.7)
[2020-10-15 13:57] LABS: Alanine Aminotransferase 20 U/L (4-35); Albumin Level 3.4 g/dL (3.5-5.1); Alkaline Phosphatase 70 U/L (38-126); Anion Gap 3 mmol/L (8-16); Aspartate Amino Transferase 24 U/L (14-36); Bilirubin,Total 0.6 mg/dL (0.2-1.3); Blood Urea Nitrogen 15 mg/dL (7-17); Calcium 9.4 mg/dL (8.4-10.2); Carbon Dioxide 27 mmol/L (22-30); Chloride 110 mmol/L (98-107); Cholesterol 121 mg/dL (0-200); Estimated CRCL calculation 57 ml/min; Estimated Glomerular Filt Rate > 60; Glucose 147 mg/dL (65-110); Parathyroid Intact 187.1 pg/mL (7.5-53.5); Potassium 3.8 mmol/L (3.4-5.0); Sodium 140 mmol/L (137-145)
[2020-10-16 11:44] LABS: Vitamin D 25 Hydroxy 32.7 ng/mL
== END 2020-10-15 08:35 | disposition home or self-care (01) ==
LOC: ANHLAB 08:40
PROVIDERS: PCP Internal Medicine; Visit Provider Internal Medicine Hematology & Oncology
DX: E21.3 Hyperparathyroidism, unspecified (principal); E55.9 Vitamin D deficiency, unspecified; E78.49 Other hyperlipidemia; E11.42 Type 2 diabetes mellitus with diabetic polyneuropathy; Z79.4 Long term (current) use of insulin; I10 Essential (primary) hypertension
CPT/HCPCS: 36415; 80048; 80053; 81002; 82306; 82465; 83036; 83970; 84443; 85025

== ENCOUNTER 2020-11-27 09:58 | Outpatient (CLI) | payer MEDICARE, SELFPAY ==
--- NOTE | ~2020-11-27 | CT_ITS ---
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 Metastatic rectal cancer. TECHNIQUE: Spiral CT of the chest, abdomen and pelvis was performed following intravenous injection o f 100 mL Omnipaque 350. Axial, coronal and sagittal images chest, abdomen and pelvis were reviewed. Coronal maximum intensity pixel images of chest reviewed. The dose-length product (DLP) for this ex amination was 961.16 mGy-cm. The exposure was tailored according to patient size (auto mA exposure c ontrol), and iterative reconstruction (ASIR) was used as additional dose reduction technique. Compari son is made to prior examination from 08/28/2020. FINDINGS: CHEST: The lungs are clear. There are no pleural or pericardial effusions. Tracheobronchial tree is patent. There is no mediastinal, hilar or axillary lymphadenopathy. There is no pneumothorax. There is cardiomegaly. There is mild coronary arterial calcification, arterial sclerosis. There i s right-sided portacatheter. The main, central pulmonary arteries are dilated which can indicate elev ated pulmonary arterial pressure, pulmonary arterial hypertension. No filling defects/pulmonary embol i within these. ABDOMEN PELVIS: The liver, spleen, adrenal glands and pancreas are unremarkable. Gallbladder is unre markable. No biliary obstruction. Portal vein is dilated but nonthrombosed, could indicate portal hy pertension. Kidneys enhance symmetrically. There is punctate right nephrolithiasis. Right renal cyst at the lower pole measuring 3.4 cm. There is no hydronephrosis. The uterus is anteverted and morph ologically normal. The bladder is unremarkable. There is no retroperitoneal or pelvic lymphadenopa thy. There is mild scattered arteriosclerotic disease. The appendix is not positively visualized. There is no pericecal inflammatory change to suggest appe ndicitis. The stomach and small bowel are unremarkable. There is expected amount of colonic stool. No free intraperitoneal gas. There are no osteoblastic or osteolytic lesions identified. There i s chronic left L5 spondylolysis with grade 2 anterolisthesis L5 on S1. Advanced disc disease L1-L4 an d L5-S1. There is left hip arthroplasty hardware. IMPRESSION: 1. No evidence metastatic disease. 2. Dilated pulmonary arteries and portal vein. 3. Cardiomegaly. Reviewed, dictated and finalized at [facility].
== END 2020-11-27 09:59 | disposition home or self-care (01) ==
LOC: ANHIMG 10:01
PROVIDERS: PCP Internal Medicine; Visit Provider Internal Medicine Hematology & Oncology
DX: C77.8 Secondary and unspecified malignant neoplasm of lymph nodes of multiple regions (principal); I51.7 Cardiomegaly
CPT/HCPCS: 71260; 74177; Q9967

== ENCOUNTER 2021-04-08 10:49 | Outpatient (CLI) | payer MEDICARE, SELFPAY ==
--- NOTE | ~2021-04-08 | CT_ITS ---
EXAMINATION: CT chest abdomen pelvis w con DATE: 04/08/2021 11:27 INDICATION: History of metastatic colon cancer TECHNIQUE: Transaxial computed tomographic images of the chest, abdomen, and pelvis were obtained aft er the administration of 100 cc of Omnipaque 350 intravenous contrast. The dose-length product (DLP) was 1188.80 mGy-cm. Automated exposure control and iterative reconstruction technique were employed. COMPARISON: 11/27/2020 FINDINGS: CHEST CT: There is mild emphysema. A right internal jugular Port-A-Cath ends with its tip in the proximal right atrium. There is a 4 mm nodule of the right middle lobe on image 63 not definitely identified on the comparison examination. There is a 3 mm nodule of the left lower lobe on image 66 not definitely anton ntified on the prior examination. There is mild dependent atelectasis. Small pleural effusions are pr esent. There is no pneumothorax. Cardiomegaly is noted. No pathologically enlarged thoracic lymph nod es are identified. ABDOMEN/PELVIS CT: The liver, spleen, pancreas, and adrenal glands are normal. There is possible mild wall thickening of the gallbladder. Diffuse anasarca is noted. There are areas of cortical scarring of the kidneys. Cys ts of the kidneys measure up to 3.2 cm on the right. There is a small to moderate volume of ascites. Streak artifact from left hip arthroplasty partially obscures visualization of the pelvis. No patholo gically enlarged abdominal or pelvic lymph nodes are identified. There is no free intraperitoneal gas or evidence of bowel obstruction. There is severe lumbar spondylosis. IMPRESSION: 1. Indeterminate nodules of the right middle lobe and left lower lobe as described above. Attention o n follow-up examination is recommended. 2. Diffuse anasarca and small to moderate volume of ascites. 3. Possible mild wall thickening of the gallbladder which could be related to congestive heart failur e. Recommend correlation for right upper quadrant tenderness. Reviewed, dictated and finalized at location [facility]. [facility] A[facility] IMPRESSION: 1. Indeterminate nodules of the right middle lobe and left lower lobe as descri bed above. Attention on follow-up examination is recommended. 2. Diffuse anasarca and small to moderate volume of ascites. 3. Possible mild wall thickening of the gallbladder which could be related to c ongestive heart failure. Recommend correlation for right upper quadrant tendern ess.
== END 2021-04-08 10:50 | disposition home or self-care (01) ==
LOC: ANHIMG 10:55
PROVIDERS: PCP Internal Medicine; Visit Provider Internal Medicine Hematology & Oncology
DX: C77.8 Secondary and unspecified malignant neoplasm of lymph nodes of multiple regions (principal); R91.8 Other nonspecific abnormal finding of lung field
CPT/HCPCS: 71260; 74177; Q9967

== ENCOUNTER 2021-06-19 10:46 | Outpatient (CLI) | payer MEDICARE, SELFPAY ==
[2021-06-19 15:50] LABS: Cholesterol 138 mg/dL (0-200); Uric Acid 9.2 mg/dL (2.5-7.5)
[2021-06-19 16:07] LABS: Parathyroid Intact 157.6 pg/mL (7.5-53.5)
[2021-06-19 16:27] LABS: Hemoglobin A1C 6.4 % (<5.7)
== END 2021-06-19 10:47 | disposition home or self-care (01) ==
LOC: ANHLAB 10:51
PROVIDERS: PCP Internal Medicine; Visit Provider Internal Medicine
DX: N18.30 Chronic kidney disease, stage 3 unspecified (principal); E11.22 Type 2 diabetes mellitus with diabetic chronic kidney disease; E11.42 Type 2 diabetes mellitus with diabetic polyneuropathy; Z51.81 Encounter for therapeutic drug level monitoring; Z79.4 Long term (current) use of insulin; E78.49 Other hyperlipidemia; G62.89 Other specified polyneuropathies; M10.00 Idiopathic gout, unspecified site; E21.3 Hyperparathyroidism, unspecified
CPT/HCPCS: 36415; 82465; 82607; 83036; 83970; 84443; 84550

== ENCOUNTER 2021-07-01 08:31 | Outpatient (CLI) | payer MEDICARE, SELFPAY ==
--- NOTE | ~2021-07-01 | CT_ITS ---
EXAMINATION: CT chest abdomen pelvis w con DATE: 07/01/2021 09:00 INDICATION: Restaging of rectal adenocarcinoma TECHNIQUE: Computed tomography (CT) of the chest, abdomen, and pelvis was performed with 100 CC Omnip aque 350 intravenous contrast. Automated exposure control and iterative reconstruction technique were employed. Exam dose: 1164.07 mGy-cm total exam DLP. COMPARISON: 04/08/2021 CT chest abdomen pelvis FINDINGS: CHEST CT: Right Port-A-Cath catheter tip at upper right atrium. Cardiomegaly. Mitral valve calcification is noted. Coronary artery calcifications. No thoracic aortic aneurysm or dissection is evident. Aortic, great vessel and coronary artery calcif ications. No hilar or mediastinal mass lesion or lymphadenopathy. No pericardial effusion. There are very small bilateral pleural effusions. Minimal bilateral perihilar and lower lung infiltrates and thickening of some interlobular septae, [place] ggesting congestive change. ABDOMEN/PELVIS CT: There is edema of the abdominal and pelvic douglas. There is minimal ascites. Diffuse hepatic steatosis. No hepatic, splenic, pancreatic, adrenal space-occupying mass lesion. There is a pinpoint nonobstructing lower pole right renal calculus. 3.2 cm lower pole right renal cys t. Bilateral renal scarring and atrophy. No ureteral calculus or hydroureteronephrosis. The urinary blad melony is under distended and there is streak artifact from left hip prosthesis, limiting evaluation of the urinary bladder. Calcified uterine fibroids. There is atherosclerotic calcification of the abdominal aorta but no aneurysm. No intraperitoneal or retroperitoneal or pelvic mass lesion or adenopathy. There is diverticulosis of the colon; no CT evidence of diverticulitis. No bowel obstruction, bowel w all thickening, pneumatosis or intraperitoneal free air. Status post left hip arthroplasty. Severe degenerative disc disease in the lower cervical spine. Diffuse idiopathic skeletal hyperostosi s of the lower thoracic spine. Multilevel severe degenerative disc disease of the lumbar and lumbosac ral spine. No spondylolysis and grade 2 spondylolisthesis at L5-S1. Right hip osteoarthritis. IMPRESSION: Cardiomegaly, congestive changes Anasarca Minimal ascites Right Port-A-Cath catheter in upper right atrium Bilateral renal scarring, atrophy 3.2 cm lower pole right renal cyst Diverticulosis of the colon; no CT evidence of diverticulitis is evident Reviewed, dictated and finalized at [facility]. Reviewed, dictated and finalized at location [facility].
== END 2021-07-01 08:32 | disposition home or self-care (01) ==
LOC: ANHIMG 08:35
PROVIDERS: PCP Internal Medicine; Visit Provider Internal Medicine Hematology & Oncology
DX: C20 Malignant neoplasm of rectum (principal); K57.30 Diverticulosis of large intestine without perforation or abscess without bleeding; N28.1 Cyst of kidney, acquired; I51.7 Cardiomegaly
CPT/HCPCS: 71260; 74177; Q9967